=== PATIENT | female | born 1960 | race Two or more races ===

== ENCOUNTER 2016-10-07 13:45 | Emergency (ER) | payer MEDICAID ==
[~2016-10-07] VITALS: Ht 190.5 cm; Wt 72.6 kg
[2016-10-07 13:49] VITALS: BP 141/89
[2016-10-07] MEDS ORDERED: FAMOTIDINE (20 MG) 20 MG TABLET ONE (13:49)
[2016-10-07] MEDS ORDERED: methylPREDNISolone SOD SUCC 125 MG/2ML VIAL ONE (13:49)
[2016-10-07] MEDS ORDERED: diphenhydrAMINE HCL 50 MG/ML VIAL ONE (13:49)
[2016-10-07] MEDS ORDERED: diphenhydrAMINE HCL 50 MG/ML VIAL IV ONE (14:00)
[2016-10-07] MEDS ORDERED: methylPREDNISolone SOD SUCC 125 MG/2ML VIAL IV ONE (14:00)
[2016-10-07] MEDS ORDERED: FAMOTIDINE (20 MG) 20 MG TABLET PO ONE (14:00)
== END 2016-10-07 14:29 | disposition home or self-care (01) ==
LOC: ER 13:49
DX: L23.9 Allergic contact dermatitis, unspecified cause (principal); F17.200 Nicotine dependence, unspecified, uncomplicated; Z88.8 Allergy status to other drugs, medicaments and biological substances
CPT/HCPCS: 96374; 96375; 99284; A4606; J1200; J2930; Z7610